=== PATIENT | female | born 1975 | race Caucasian/White ===

== ENCOUNTER 2016-10-01 05:15 | Day surgery (SDC) | payer MEDICAID ==
[2016-09-30 15:16] LABS: HEMATOCRIT 37.9 % (36.0-48.0); HEMOGLOBIN 12.7 g/dL (12-16); MCHC 33.5 g/dL (31.0-37.0); MCV 101.3 fL (80.0-100.0); MEAN PLATELET VOLUME 9.6 fL (7.4-10.4); RBC 3.74 10x6/uL (4.00-5.40); RDW 11.5 % (11.5-14.5); WBC 7.4 10x3/uL (4.8-10.8)
[~2016-10-01] VITALS: Ht 165.1 cm; Wt 59.0 kg
[~2016-10-01 05:15] MED LIST: AZOR 5-20 MG TA1 TAB PO; IBUPROFEN600 MG PO; MONONESSA1 TAB PO; NORVASC5 MG PO; PERCOCET 5-3251 TAB PO; TOPROL XL100 MG PO; ZOCOR20 MG PO
[2016-10-01 06:28] VITALS: BP 128/89; Ht 165.1 cm; Wt 59.0 kg
[2016-10-01 06:37] LABS: HCG URINE NEGATIVE (NEGATIVE)
[2016-10-01] MEDS ORDERED: HYDROCODONE-APA1 TAB PO (08:49)
--- NOTE | 2016-10-01 10:45 | NUR ---
1015 IV DC WITH CATHER TIP INTACT
--- NOTE | 2016-10-02 15:24 | OP ---
PATIENT NAME: PRECIOUS RICHARDSON MEDICAL RECORD: [id number] :77 LOCATION:D.OPS ADMISSION DATE: SURGEON: KASSANDRA JOSEPH MD DATE OF OPERATION: 10/01/2016 PREOPERATIVE DIAGNOSIS: Medial meniscus tear. 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 PROCEDURES: 1. Arthroscopic chondroplasty, medial femoral condyle. 2. Arthroscopic partial medial meniscectomy. SURGEON: Kassandra Joseph MD. ANESTHESIA: General. INTRAOPERATIVE COMPLICATIONS: None. SUMMARY OF PATHOLOGIC FINDINGS: The patient did have a complex tear of the posterior horn of medial meniscus. More problematic than this by far was the fact that she had grade IV chondromalacia of almost the entire medial femoral condylar surface with the exception of the posterior portions of it, lots of chondral flaps were noted, lots of intra-articular chondral fragments were also noted. These were all taken down. OPERATIVE SUMMARY IN DETAIL: After obtaining the appropriate preoperative orthopedic surgery consent as well as anesthetic consultation, evaluation and clearance, the patient was brought to the operating room and placed on the operating table in supine position. After general laryngeal mask was administered, tourniquet was placed about the proximal aspect of the right lower extremity. Right lower extremity was then prepped and draped in routine sterile fashion. The leg was elevated and exsanguinated, tourniquet inflated to 350 mmHg. Routine inferolateral portal was established followed by superomedial portal and inferomedial portal. Diagnostic arthroscopy did show the above-mentioned findings. Attention was first turned to generalized debridement of multiple loose chondral flaps as well as generalized debridement of multiple loose chondral bodies. Having removed all these, small portion of the badly torn eburnated posterior meniscus was taken down. Ironically enough, the patient's medial tibial plateau showed areas of grade II and III chondromalacia, but not full-thickness eburnation yet. Unfortunately, this will lead to at least hemiarthroplasty, if not, total knee arthroplasty due to the patellofemoral joint problem seen. Having completed the scope, the knee was insufflated with 30 cc of 0.25% Marcaine with epinephrine and 80 mg of Depo-Medrol. Arthroscopy portals were closed in routine interrupted fashion using 4-0 Prolene. Sterile dressings were applied. The patient was awakened and taken to recovery room in stable condition. All final needle and sponge counts were correct. TRANSINT:[id number] Voice Confirmation ID: [id number] DOCUMENT ID: [id number] OPERATIVE REPORT [id number] PRECIOUS RICHARDSON MD, KASSANDRA LINDA at 1524 CC: [id number] DICTATION DATE: 10/01/16 0853 TANK OFFICER: 10/01/16 1543 [facility] 10/01/[address] [address]
== END 2016-10-01 10:20 | disposition home or self-care (01) ==
LOC: D.OPS 05:15 → D.PAN 07:30 → D.OPS 10:20
PROVIDERS: Anesthesiology; Orthopaedic Surgery
DX: S83.231A Complex tear of medial meniscus, current injury, right knee, initial encounter (principal); M94.261 Chondromalacia, right knee; Z01.812 Encounter for preprocedural laboratory examination